=== PATIENT | female | born 1970 | race Caucasian/White ===

== ENCOUNTER 2018-07-08 09:52 | Day surgery (SDC) | payer OTHER ==
[~2018-07-08] VITALS: Ht 177.8 cm; Wt 92.8 kg
[~2018-07-08 09:52] MED LIST: ALBU8.5H8 INH; BUDE10.22 INH; CETI10TA24 PO; MONT10TA6 PO
[2018-07-08] MEDS ORDERED: LACTATED RINGERS 1,000 ML IV SCH (10:09)
[2018-07-08] MEDS ORDERED: ONDANSETRON ODT 8 MG PO ONE (10:30)
[2018-07-08] MEDS ORDERED: ACETAMINOPHEN 500 MG TABLET PO ONE (10:30)
[2018-07-08] MEDS ORDERED: GABAPENTIN 300 MG CAPSULE PO ONE (10:30)
[2018-07-08 10:33] VITALS: BP 150/92
[2018-07-08] MEDS ORDERED: FENTANYL PF 100 MCG/2ML ONE (11:52)
[2018-07-08] MEDS ORDERED: MIDAZOLAM 1 MG/ML, 2ML ONE (11:52)
[2018-07-08] MEDS ORDERED: BUPIVACAINE/PF 0.5% ONE (12:49)
[2018-07-08] MEDS ORDERED: DEXAMETHASONE 4 MG/ML, 1ML ONE (12:52)
[2018-07-08] MEDS ORDERED: PROPOFOL 10 MG/ML, 20ML ONE (12:52)
[2018-07-08] MEDS ORDERED: CEFAZOLIN 1,000 MG ONE (12:52)
[2018-07-08] MEDS ORDERED: OXYcodone 5 MG/5 ML ORAL.SOL UDC ONE (13:37)
[2018-07-08] MEDS ORDERED: OXYcodone 5 MG/5 ML ORAL.SOL UDC PO PRN (14:00)
[2018-07-08] MEDS ORDERED: ONDANSETRON ODT 4 MG ONE (16:09)
== END 2018-07-08 16:30 | disposition home or self-care (01) ==
LOC: OUT 09:52
PROVIDERS: ATTEND Orthopaedic Surgery
DX: M20.22 Hallux rigidus, left foot (principal); M77.42 Metatarsalgia, left foot; M24.575 Contracture, left foot; J45.909 Unspecified asthma, uncomplicated; Z98.890 Other specified postprocedural states; Z79.899 Other long term (current) drug therapy; Z88.8 Allergy status to other drugs, medicaments and biological substances; Z88.0 Allergy status to penicillin
CPT/HCPCS: 28289; 28308; 64447; 81025; C1713; J0690; J1100; J2250; J2704; J3010; J3490; J7120; Q0162